=== PATIENT | male | born 1940 | race Caucasian/White ===

== ENCOUNTER 2016-12-07 23:40 | Emergency (ER) | payer OTHER ==
[2016-12-07 23:57] VITALS: TEMP 97.3; BMI 27.3
--- NOTE | 2016-12-08 00:34 | PDOC ---
History of Present Illness - General Chief Complaint: Altered Mental Status Stated Complaint: CONFUSION/ URINARY FREQUENCY Time Seen by Provider: 12/08/16 00:12 Past History - Past Medical History Allergies/Adverse Reactions: Allergies Allergy/AdvReac Type Severity Reaction Status Date / Time No Known Allergies Allergy Verified 12/07/16 23:53 Home Medications: Ambulatory Orders Hydrochlorothiazide [Hctz -] 20 mg PO DAILY 12/30/13 Simvastatin [Zocor -] 40 mg PO HS 12/30/13 Cholecalciferol (Vitamin D3) [Vitamin D3] 1,000 unit PO DAILY 12/07/14 Potassium Chloride [Klor-Con M20] 20 meq PO DAILY 12/07/14 Aspirin [ASA -] 81 mg PO DAILY #0 12/08/14 Multivit-Min/FA/Lycopen/Lutein [Centrum Silver Tablet] 1 each PO DAILY 01/30/16 Polyethylene Glycol 3350 [Miralax 119 gm Btl -] 1 cap PO BID PRN 01/30/16 Anemia: No Asthma: No Cancer: Yes (NASAL BASAL CELL CA,RECTAL CANCER) Cardiac Disorders: Yes (MVP) CVA: No COPD: No CHF: No Dementia: No Diabetes: No GI Disorders: Yes (DIVERTICULOSIS) Disorders: Yes (BPH) HTN: Yes Hypercholesterolemia: Yes Liver Disease: No Seizures: No Thyroid Disease: No - Surgical History Abdominal Surgery: Yes (COLON RESECTION 12/2014) Appendectomy: No Cardiac Surgery: No Cholecystectomy: No Lung Surgery: No Neurologic Surgery: No Orthopedic Surgery: No - Psycho/Social/Smoking Cessation Hx Anxiety: No Suicidal Ideation: No Smoking History: Never smoked Have you smoked in the past 12 months: No Number of Cigarettes Smoked Daily: 0 Information on smoking cessation initiated: No Hx Alcohol Use: No Drug/Substance Use Hx: No Substance Use Type: None Hx Substance Use Treatment: No *Physical Exam - Vital Signs Last Vital Signs Temp Pulse Resp BP Pulse Ox 97.3 F L 55 L 14 143/67 99 12/07/16 23:54 12/07/16 23:54 12/07/16 23:54 12/07/16 23:54 12/07/16 23:54
[2016-12-08 01:09] LABS: URINE APPEARANCE CLEAR; URINE BILIRUBIN NEGATIVE (NEGATIVE); URINE COLOR STRAW; URINE GLUCOSE (UA) NEGATIVE (NEGATIVE); URINE KETONE NEGATIVE (NEGATIVE); URINE LEUK ESTERASE NEGATIVE (NEGATIVE); URINE NITRITE NEGATIVE (NEGATIVE); URINE PROTEIN NEGATIVE (NEGATIVE); URINE UROBILINOGEN NEGATIVE E.U./dl (0.2-1.0)
--- NOTE | 2016-12-08 01:13 | PDOC ---
History of Present Illness - General History Source: Patient, Old Records Exam Limitations: No Limitations - History of Present Illness Initial Comments: 12/08/16 01:44 The patient is a 76 year old male, accompanied by neighbor, with a past medical history of colon cancer, who presents to the emergency department today for further evaluation of altered mental status since late yesterday. As per neighbor, the patient's spoke to him on the phone and became concerned when he was having difficulty formulating thoughts. Neighbor reports that he checked in on the patient at 10:30pm yesterday and his confusion lasted 45 minutes. The patient reports that he has experienced similar symptoms in the past and that he is scheduled for a CT tomorrow for further evaluation. The patient denies any difficulty walking or numbness The patient denies fever, chills, and sweats. The patient denies nausea, vomiting, and diarrhea. The patient denies chest pain, cough, and shortness of breath. <Gio Cummings - Last Filed: 12/08/16 01:44> <Aure Zacarias - Last Filed: 12/08/16 02:29> <Tom Baker - Last Filed: 12/08/16 05:10> - General Chief Complaint: Altered Mental Status Stated Complaint: CONFUSION/ URINARY FREQUENCY Time Seen by Provider: 12/08/16 00:12 Past History <Gio Cummings - Last Filed: 12/08/16 01:44> - Past Medical History Anemia: No Asthma: No Cancer: Yes (NASAL BASAL CELL CA,RECTAL CANCER) Cardiac Disorders: Yes (MVP) CVA: No COPD: No CHF: No Dementia: No Diabetes: No GI Disorders: Yes (DIVERTICULOSIS) Disorders: Yes (BPH) HTN: Yes Hypercholesterolemia: Yes Liver Disease: No Seizures: No Thyroid Disease: No - Surgical History Abdominal Surgery: Yes (COLON RESECTION 12/2014) Appendectomy: No Cardiac Surgery: No Cholecystectomy: No Lung Surgery: No Neurologic Surgery: No Orthopedic Surgery: No - Immunization History Immunization Up to Date: Yes - Psycho/Social/Smoking Cessation Hx Anxiety: No Suicidal Ideation: No Smoking History: Never smoked Have you smoked in the past 12 months: No Number of Cigarettes Smoked Daily: 0 Information on smoking cessation initiated: No Hx Alcohol Use: No Drug/Substance Use Hx: No Substance Use Type: None Hx Substance Use Treatment: No <RellDainshona Merlosh - Last Filed: 12/08/16 02:29> <Tom Baker - Last Filed: 12/08/16 05:10> - Past Medical History Allergies/Adverse Reactions: Allergies Allergy/AdvReac Type Severity Reaction Status Date / Time No Known Allergies Allergy Verified 12/07/16 23:53 Home Medications: Ambulatory Orders Hydrochlorothiazide [Hctz -] 20 mg PO DAILY 12/30/13 Simvastatin [Zocor -] 40 mg PO HS 12/30/13 Cholecalciferol (Vitamin D3) [Vitamin D3] 1,000 unit PO DAILY 12/07/14 Potassium Chloride [Klor-Con M20] 20 meq PO DAILY 12/07/14 Aspirin [ASA -] 81 mg PO DAILY #0 12/08/14 Multivit-Min/FA/Lycopen/Lutein [Centrum Silver Tablet] 1 each PO DAILY 01/30/16 Polyethylene Glycol 3350 [Miralax 119 gm Btl -] 1 cap PO BID PRN 01/30/16 Review of Systems - Review of Systems Able to Perform ROS?: Yes Comments:: 12/08/16 01:45 CONSTITUTIONAL: Absent: fever, no chills, no fatigue EYES: Absent: visual changes ENT: Absent: ear pain, no sore throat CARDIOVASCULAR: Absent: chest pain, no palpitations RESPIRATORY: Absent: cough, no SOB GI: Absent: abdominal pain, no nausea, no vomiting, no constipation, no diarrhea GENITOURINARY: Absent: dysuria, no frequency, no hematuria MUSCULOSKELETAL: Absent: back pain, no arthralgia, no myalgia SKIN: Absent: rash NEURO: Present: Confusion Absent: headache <Gio Cummings - Last Filed: 12/08/16 01:44> *Physical Exam - Vital Signs Last Vital Signs Temp Pulse Resp BP Pulse Ox 97.3 F L 55 L 14 143/67 99 12/07/16 23:54 12/07/16 23:54 12/07/16 23:54 12/07/16 23:54 12/07/16 23:54 - Physical Exam Comments: 12/08/16 01:45 GENERAL: Well-appearing, well-nourished. No apparent distress. HEENT: Normocephalic, atraumatic. PERRL, EOM intact. CARDIOVASCULAR: Normal S1, S2. Regular rate and rhythm. PULMONARY: Clear to auscultation bilaterally. ABDOMEN: Soft, non-distended, non-tender. EXTREMITIES: Normal ROM in all four extremities. No gross deformities. SKIN: Warm, dry. No rash NEUROLOGICAL: No focal neurological deficits. <Gio Cummings - Last Filed: 12/08/16 01:44> - Vital Signs Last Vital Signs Temp Pulse Resp BP Pulse Ox 97.3 F L 55 L 14 143/67 99 12/07/16 23:54 12/07/16 23:54 12/07/16 23:54 12/07/16 23:54 12/07/16 23:54 <Aure Zacarias - Last Filed: 12/08/16 02:29> - Vital Signs Last Vital Signs Temp Pulse Resp BP Pulse Ox 97.3 F L 55 L 14 143/67 99 12/07/16 23:54 12/07/16 23:54 12/07/16 23:54 12/07/16 23:54 12/07/16 23:54 <Tom Baker - Last Filed: 12/08/16 05:10> ED Treatment Course - ADDITIONAL ORDERS Additional order review: Laboratory Results 12/08/16 00:59 Urine Color Straw Urine Appearance Clear Urine pH 6.0 Ur Specific [place] 1.006 Urine Protein Negative Urine Glucose (UA) Negative Urine Ketones Negative Urine Blood 1+ H Urine Nitrite Negative Urine Bilirubin Negative Urine Urobilinogen Negative Ur Leukocyte Esterase Negative Urine RBC 1 Urine WBC None seen Hyaline Casts 1 <Gio Cummings - Last Filed: 12/08/16 01:44> - LABORATORY CBC & Chemistry Diagram: 12/08/16 02:08 12/08/16 02:08 <Aure Zacarias - Last Filed: 12/08/16 02:29> - LABORATORY CBC & Chemistry Diagram: 12/08/16 02:08 12/08/16 02:08 - ADDITIONAL ORDERS Additional order review: Laboratory Results 12/08/16 12/08/16 12/08/16 02:08 02:08 02:08 INR Sodium 140 Potassium 3.4 L Chloride 102 Carbon Dioxide 29 Anion Gap 9 BUN 20 H Creatinine 0.9 Creat Clearance w eGFR > 60 Random Glucose 88 Calcium 8.7 Total Bilirubin 0.5 AST 17 ALT 18 D Alkaline Phosphatase 60 Creatine Kinase 93 Troponin I < 0.02 Total Protein 7.8 Albumin 3.7 Urine Color Straw Urine Appearance Clear Urine pH 6.0 Ur Specific [place] 1.006 Urine Protein Negative Urine Glucose (UA) Negative Urine Ketones Negative Urine Blood 1+ H Urine Nitrite Negative Urine Bilirubin Negative Urine Urobilinogen Negative Ur Leukocyte Esterase Negative Urine RBC 1 Urine WBC <1 Hyaline Casts Blood Type A POSITIVE Antibody Screen Negative 12/08/16 12/08/16 02:08 00:59 INR 1.02 Sodium Potassium Chloride Carbon Dioxide Anion Gap BUN Creatinine Creat Clearance w eGFR Random Glucose Calcium Total Bilirubin AST ALT Alkaline Phosphatase Creatine Kinase Troponin I Total Protein Albumin Urine Color Straw Urine Appearance Clear Urine pH 6.0 Ur Specific [place] 1.006 Urine Protein Negative Urine Glucose (UA) Negative Urine Ketones Negative Urine Blood 1+ H Urine Nitrite Negative Urine Bilirubin Negative Urine Urobilinogen Negative Ur Leukocyte Esterase Negative Urine RBC 1 Urine WBC None seen Hyaline Casts 1 Blood Type Antibody Screen 12/08/16 02:08 RBC 4.32 MCV 92.3 MCHC 33.3 RDW 14.4 MPV 7.0 L Neutrophils % 40.9 L D Lymphocytes % 48.4 H D Monocytes % 6.3 Eosinophils % 3.1 D Basophils % 1.3 <Tom Baker - Last Filed: 12/08/16 05:10> Medical Decision Making - Medical Decision Making 12/08/16 02:23 76 yo male who has been having episodes of confusion was brought to ER by a friend. He has already seen Dr Rogelio Fung for these episodes and presents with a prescription for head CT with constrast -he has no gross focal deficits but is a very poor historian and states he doesn 't remember his age or the month -pt is alert and ambulating with ease , no extremity weakness,no ataxia,no slurred speech 12/08/16 02:29 plan- ct scan head/cbc/comp <Aure Zacarias - Last Filed: 12/08/16 02:29> *DC/Admit/Observation/Transfer - Attestations Scribe Attestion: 12/08/16 01:46 Documentation prepared by Gio Cummings, acting as medical device sales for Aure Zacarias MD. <Gio Cummings - Last Filed: 12/08/16 01:44> <Aure Zacarias - Last Filed: 12/08/16 02:29> - Discharge Dispostion Admit: No <Tom Baker - Last Filed: 12/08/16 05:10> Diagnosis at time of Disposition: Dementia - Discharge Dispostion Disposition: HOME Condition at time of disposition: Improved
[2016-12-08 01:20] LABS: URINE BLOOD 1+ (NEGATIVE)
[2016-12-08 01:22] LABS: URINE RBC 1 /hpf (0-3); URINE WBC NONE SEEN /hpf (3-5)
[2016-12-08 01:23] LABS: URINE HYALINE CAST 1 /lpf
[2016-12-08 02:19] LABS: BASOPHIL 1.3 % (0-2.0); EOSINOPHIL 3.1 % (0-4.5); MCH 30.7 pg (25.7-33.7); MCHC 33.3 g/dl (32.0-35.9); MEAN CELL VOLUME 92.3 fl (80-96); NEUTROPHILS 40.9 % (42.8-82.8); PLATELET COUNT 163 K/MM3 (134-434); RDW 14.4 % (11.9-15.9); WHITE BLOOD COUNT 11.2 K/mm3 (4.0-10.0)
--- NOTE | 2016-12-08 02:19 | PDOC ---
NIH Stroke Scale - Last Known Well Date/Time & Onset Date Last Known Well: 12/07/16 Time Last Known Well: 22:00 - Initial Evaluation Level of consciousness: Alert Ask patient the month and their age: Both incorrect Ask patient to open & close eyes; make fist and let go: Obeys both correctly Best gaze (horizontal eye movement): Normal Visual field testing: No visual field loss Facial paresis (Show teeth/raise eyebrows/close eyes tight): Normal symmetrical movement Motor Function: Left Arm: Normal Motor Function: Right Arm: Normal (extends arm 90 (or 45) degrees for 10 seconds without drift Motor Function: Left Leg: Normal (extends leg 30 degrees for 5 seconds without drift) Motor Function: Right Leg: Normal (extends leg 30 degrees for 5 seconds without drift) Limb Ataxia: No ataxia Sensory(Use pinprick test arms,legs,trunk,face/side to side): Normal Best language (Describe picture, name items, read sentences): No Aphasia Dysarthria (read several words): Normal articulation Extinction and Inattention: No abnormality - Total Score NIH Stroke Scale Score: 2
[2016-12-08 02:23] LABS: URINE APPEARANCE CLEAR; URINE BILIRUBIN NEGATIVE (NEGATIVE); URINE COLOR STRAW; URINE GLUCOSE (UA) NEGATIVE (NEGATIVE); URINE KETONE NEGATIVE (NEGATIVE); URINE LEUK ESTERASE NEGATIVE (NEGATIVE); URINE NITRITE NEGATIVE (NEGATIVE); URINE PROTEIN NEGATIVE (NEGATIVE); URINE UROBILINOGEN NEGATIVE E.U./dl (0.2-1.0)
[2016-12-08 02:28] LABS: URINE BLOOD 1+ (NEGATIVE)
[2016-12-08 02:30] LABS: URINE RBC 1 /hpf (0-3); URINE WBC <1 /hpf (3-5)
[2016-12-08 02:34] LABS: INR 1.02 (0.82-1.09); PROTHROMBIN TIME (PATIENT) 11.2 SEC (9.98-11.88)
[2016-12-08 02:49] LABS: ALBUMIN 3.7 g/dl (3.4-5.0); ANION GAP 9 (8-16); BILIRUBIN,TOTAL 0.5 mg/dL (0.2-1.0); CALCIUM 8.7 mg/dL (8.5-10.1); CO2 29 mmol/L (21-32); CREATININE 0.9 mg/dL (0.7-1.3); GLUCOSE,RANDOM 88 mg/dL (74-106); SGOT/AST 17 U/L (15-37); SGPT/ALT 18 U/L (12-78)
[2016-12-08 02:52] LABS: ALK PHOS 60 U/L (45-117); TOT PROT 7.8 g/dl (6.4-8.2); TROPONIN I < 0.02 ng/ml (0.00-0.05)
--- NOTE | 2016-12-08 05:13 | PDOC ---
*Physical Exam - Vital Signs Last Vital Signs Temp Pulse Resp BP Pulse Ox 97.3 F L 55 L 14 143/67 99 12/07/16 23:54 12/07/16 23:54 12/07/16 23:54 12/07/16 23:54 12/07/16 23:54 <Tom Baker - Last Filed: 12/08/16 05:13> - Vital Signs Last Vital Signs Temp Pulse Resp BP Pulse Ox 97.3 F L 55 L 14 143/67 99 12/07/16 23:54 12/07/16 23:54 12/07/16 23:54 12/07/16 23:54 12/07/16 23:54 <Leah Patiño - Last Filed: 12/08/16 05:15> ED Treatment Course - LABORATORY CBC & Chemistry Diagram: 12/08/16 02:08 12/08/16 02:08 - ADDITIONAL ORDERS Additional order review: Laboratory Results 12/08/16 12/08/16 12/08/16 02:08 02:08 02:08 INR Sodium 140 Potassium 3.4 L Chloride 102 Carbon Dioxide 29 Anion Gap 9 BUN 20 H Creatinine 0.9 Creat Clearance w eGFR > 60 Random Glucose 88 Calcium 8.7 Total Bilirubin 0.5 AST 17 ALT 18 D Alkaline Phosphatase 60 Creatine Kinase 93 Troponin I < 0.02 Total Protein 7.8 Albumin 3.7 Urine Color Straw Urine Appearance Clear Urine pH 6.0 Ur Specific [place] 1.006 Urine Protein Negative Urine Glucose (UA) Negative Urine Ketones Negative Urine Blood 1+ H Urine Nitrite Negative Urine Bilirubin Negative Urine Urobilinogen Negative Ur Leukocyte Esterase Negative Urine RBC 1 Urine WBC <1 Hyaline Casts Blood Type A POSITIVE Antibody Screen Negative 12/08/16 12/08/16 02:08 00:59 INR 1.02 Sodium Potassium Chloride Carbon Dioxide Anion Gap BUN Creatinine Creat Clearance w eGFR Random Glucose Calcium Total Bilirubin AST ALT Alkaline Phosphatase Creatine Kinase Troponin I Total Protein Albumin Urine Color Straw Urine Appearance Clear Urine pH 6.0 Ur Specific [place] 1.006 Urine Protein Negative Urine Glucose (UA) Negative Urine Ketones Negative Urine Blood 1+ H Urine Nitrite Negative Urine Bilirubin Negative Urine Urobilinogen Negative Ur Leukocyte Esterase Negative Urine RBC 1 Urine WBC None seen Hyaline Casts 1 Blood Type Antibody Screen 12/08/16 02:08 RBC 4.32 MCV 92.3 MCHC 33.3 RDW 14.4 MPV 7.0 L Neutrophils % 40.9 L D Lymphocytes % 48.4 H D Monocytes % 6.3 Eosinophils % 3.1 D Basophils % 1.3 <Tom Baker - Last Filed: 12/08/16 05:13> - LABORATORY CBC & Chemistry Diagram: 12/08/16 02:08 12/08/16 02:08 - ADDITIONAL ORDERS Additional order review: Laboratory Results 12/08/16 12/08/16 12/08/16 02:08 02:08 02:08 INR Sodium 140 Potassium 3.4 L Chloride 102 Carbon Dioxide 29 Anion Gap 9 BUN 20 H Creatinine 0.9 Creat Clearance w eGFR > 60 Random Glucose 88 Calcium 8.7 Total Bilirubin 0.5 AST 17 ALT 18 D Alkaline Phosphatase 60 Creatine Kinase 93 Troponin I < 0.02 Total Protein 7.8 Albumin 3.7 Urine Color Straw Urine Appearance Clear Urine pH 6.0 Ur Specific [place] 1.006 Urine Protein Negative Urine Glucose (UA) Negative Urine Ketones Negative Urine Blood 1+ H Urine Nitrite Negative Urine Bilirubin Negative Urine Urobilinogen Negative Ur Leukocyte Esterase Negative Urine RBC 1 Urine WBC <1 Hyaline Casts Blood Type A POSITIVE Antibody Screen Negative 12/08/16 12/08/16 02:08 00:59 INR 1.02 Sodium Potassium Chloride Carbon Dioxide Anion Gap BUN Creatinine Creat Clearance w eGFR Random Glucose Calcium Total Bilirubin AST ALT Alkaline Phosphatase Creatine Kinase Troponin I Total Protein Albumin Urine Color Straw Urine Appearance Clear Urine pH 6.0 Ur Specific [place] 1.006 Urine Protein Negative Urine Glucose (UA) Negative Urine Ketones Negative Urine Blood 1+ H Urine Nitrite Negative Urine Bilirubin Negative Urine Urobilinogen Negative Ur Leukocyte Esterase Negative Urine RBC 1 Urine WBC None seen Hyaline Casts 1 Blood Type Antibody Screen 12/08/16 02:08 RBC 4.32 MCV 92.3 MCHC 33.3 RDW 14.4 MPV 7.0 L Neutrophils % 40.9 L D Lymphocytes % 48.4 H D Monocytes % 6.3 Eosinophils % 3.1 D Basophils % 1.3 <Leah Patiño - Last Filed: 12/08/16 05:15> Progress Note - Progress Note Progress Note: Exam: Noncontrast CT head and contrast-enhanced CT head were read by Rashard Nolasco M.D. at 04:[address] head: Findings: Multiple axial images were obtained of the brain without contrast. There is no mass-effect, midline shift or hemorrhage. There is no intra-axial or extra-axial fluid collection. Atrophic involutional changes and chronic ischemic periventricular white matter changes are noted. The visualized portions of the paranasal sinuses are clear. The middle ear cavities and mastoids are clear. Impression: No mass effect or intracranial hemorrhage. Contrast enhanced CT head: The anterior and posterior circulation have a normal appearance. No pathologic parenchymal or extra-axial enhancement is seen. The cortical veins deep veins and venous sinuses have a normal appearance. Impression: No pathologic parenchymal or extra-axial enhancement. Normal appearance of the anterior and posterior circulation. <Leah Patiño - Last Filed: 12/08/16 05:15> *DC/Admit/Observation/Transfer <Tom Baker - Last Filed: 12/08/16 05:13> - Attestations Scribe Attestion: 12/08/16 05:15 Documentation prepared by Leah Patiño, acting as medical office technologist for Tom Baker MD, MD <Leah Patiño - Last Filed: 12/08/16 05:15> Diagnosis at time of Disposition: Dementia - Discharge Dispostion Disposition: HOME Condition at time of disposition: Improved - Referrals Referrals: Clifton Lei MD [Staff Physician] - - Patient Instructions Printed Discharge Instructions: Dementia - Post Discharge Activity
[2016-12-08 05:36] VITALS: BP 142/87; PULSE 64
--- NOTE | 2016-12-08 11:58 | EKG ---
Test Reason : Blood Pressure : / mmHG Vent. Rate : 055 BPM Atrial Rate : 055 BPM P-R Int : 168 ms QRS Dur : 098 ms QT Int : 466 ms P-R-T Axes : 077 -21 -37 degrees QTc Int : 445 ms SINUS BRADYCARDIA NONSPECIFIC ST AND T WAVE ABNORMALITY ABNORMAL ECG WHEN COMPARED WITH ECG OF 09-MAR-2015 09:23, PREMATURE VENTRICULAR COMPLEXES ARE NO LONGER PRESENT T WAVE INVERSION NO LONGER EVIDENT IN LATERAL LEADS QT HAS SHORTENED Confirmed by AG ONEIL MD ([id number]) on 12/08/2016 11:57:47 AM Referred By: Confirmed By:AG ONEIL MD
== END 2016-12-08 05:38 | disposition home or self-care (01) ==
LOC: JER 23:40
DX: F03.90 Unspecified dementia, unspecified severity, without behavioral disturbance, psychotic disturbance, mood disturbance, and anxiety (principal); I10 Essential (primary) hypertension; E78.00 Pure hypercholesterolemia, unspecified; N40.0 Benign prostatic hyperplasia without lower urinary tract symptoms; Z85.038 Personal history of other malignant neoplasm of large intestine; Z85.828 Personal history of other malignant neoplasm of skin
CPT/HCPCS: 36415; 70470-TC; 71010-TC; 80053; 81003; 81015; 82550; 84484; 85025; 85610; 86850; 86900; 86901; 93005; 93010; 99282-25

== ENCOUNTER 2017-05-06 07:09 | Day surgery (SDC) | payer OTHER ==
[2017-05-05 12:05] VITALS: BMI 23.1
[2017-05-06] MEDS ORDERED: PROPOFOL 20 ML ONE ×4 (07:47→07:48)
[2017-05-06] MEDS ORDERED: SUCCINYLCHOLINE CHLORIDE 200 MG/10 ML VIAL ONE (07:47)
[2017-05-06] MEDS ORDERED: LIDOCAINE HCL/PF 2% SDV 5ML VIAL ONE (07:47)
[2017-05-06] MEDS ORDERED: ePHEDrine SULFATE 50 MG/1 ML AMPULE ONE (07:47)
[2017-05-06] MEDS ORDERED: PHENYLEPHRINE HCL 10 MG/1 ML SINGLE DOSE VIAL ONE (07:48)
[2017-05-06 08:44] VITALS: TEMP 97.9
[2017-05-06 09:27] VITALS: BP 106/57; PULSE 60
--- NOTE | 2017-05-07 11:52 | PATH ---
Surgical Pathology Report Patient Name: KELLEY SOSA [facility]. Rec. #: [id number] /Age/Gender: 1940 (Age: 76) / M Account: [id number] Location: U-ENDOSCOPY Taken: 05/06/2017 Received: 05/06/2017 Reported: 05/07/2017 Physicians: Sweta Schmidt M.D. Specimen(s) Received A: POLYP TRANSVERSE DISTAL COLON B: BX RECTAL ANASTOMSIS Clinical History History of rectal cancer Colon polyp, diverticulosis, patent rectal sigmoid anastomosis Final Diagnosis A. COLON, DISTAL TRANSVERSE, BIOPSY: COLONIC MUCOSA WITH HYPERPLASIA OF MUCOSA ASSOCIATED LYMPHOID TISSUE. NO ACTIVE INFLAMMATION, ADENOMATOUS CHANGE, OR CARCINOMA IDENTIFIED. B. COLON, RECTAL ANASTOMOSIS, BIOPSY: COLONIC MUCOSA WITH NO PATHOLOGIC CHANGES. Electronically Signed Jose Juan M.D. Gross Description A. Received in formalin, labeled "polyp transverse distal" are 2 dasilva, irregular portions of soft tissue measuring 0.2 and 0.5 cm. in greatest dimension. The specimens are submitted in toto in one cassette. B. Received in formalin, labeled "biopsy rectal anastomosis" are 5 dasilva, irregular portions of soft tissue ranging from 0.1-0.4 cm. in greatest dimension. The specimens are submitted in toto in one cassette. /05/06/201705/06/2017
== END 2017-05-06 09:37 | disposition home or self-care (01) ==
LOC: JASU-ENDO 07:09
PROVIDERS: ATTEND Internal Medicine Gastroenterology
PROC: 0DBP8ZX Excision of Rectum, Via Natural or Artificial Opening Endoscopic, Diagnostic (ICD-10-PCS; 2017-05-06)
PROC: 0DBL8ZX Excision of Transverse Colon, Via Natural or Artificial Opening Endoscopic, Diagnostic (ICD-10-PCS; principal; 2017-05-06 08:00)
DX: Z12.11 Encounter for screening for malignant neoplasm of colon (principal); Z85.048 Personal history of other malignant neoplasm of rectum, rectosigmoid junction, and anus; D12.3 Benign neoplasm of transverse colon; K57.30 Diverticulosis of large intestine without perforation or abscess without bleeding; K64.8 Other hemorrhoids; Z98.0 Intestinal bypass and anastomosis status
CPT/HCPCS: 88305-TC

== ENCOUNTER 2017-08-22 14:47 | Inpatient (IN) | payer OTHER ==
--- NOTE | 2017-08-22 15:40 | PDOC ---
History of Present Illness - General Stated Complaint: FALL Time Seen by Provider: 08/22/17 15:06 History Source: Patient, Family Exam Limitations: No Limitations, Dementia - History of Present Illness Initial Comments: 08/22/17 15:22 The patient is a 77M with a PMH of Alzheimer's demetia who came via EMS after sustaining a fall. The patient was with his son when he had a witnessed mechanical fall. The patient states that he took a misstep and fell and hit his head. He is on baby asa. He denies LOC but does not remember the entire event. He denies any CP, SOB, lightheadedness, palpitations, dizziness, numbness, tingling, or weakness anywhere. Past History - Past Medical History Allergies/Adverse Reactions: Allergies Allergy/AdvReac Type Severity Reaction Status Date / Time No Known Allergies Allergy Verified 08/22/17 15:10 Home Medications: Ambulatory Orders Simvastatin [Zocor -] 40 mg PO HS 12/30/13 Potassium Chloride [Klor-Con M20] 20 meq PO DAILY 12/07/14 Aspirin [ASA -] 81 mg PO DAILY #0 12/08/14 Multivit-Min/FA/Lycopen/Lutein [Centrum Silver Tablet] 1 each PO DAILY 01/30/16 Polyethylene Glycol 3350 [Miralax 119 gm Btl -] 1 cap PO PRN PRN 01/30/16 Cholecalciferol (Vitamin D3) [Vitamin D3] 10,000 unit PO DAILY 05/05/17 Citalopram Hydrobromide [Celexa -] 10 mg PO DAILY 05/05/17 Metoprolol Succinate [Toprol XL -] 25 mg PO DAILY 05/05/17 Donepezil HCl 5 mg PO DAILY 08/22/17 Anemia: No Asthma: No Cancer: Yes (NASAL BASAL CELL, RECTAL CANCER) Cardiac Disorders: Yes (MVP) CVA: No COPD: No CHF: No Dementia: (MILD OMS) Diabetes: No GI Disorders: Yes (DIVERTICULOSIS) Disorders: Yes (BPH) HTN: Yes Hypercholesterolemia: Yes Liver Disease: No Seizures: No Thyroid Disease: No - Surgical History Abdominal Surgery: Yes (COLON RESECTION 12/2014) Appendectomy: No Cardiac Surgery: No Cholecystectomy: No Lung Surgery: No Neurologic Surgery: No Orthopedic Surgery: No - Immunization History Immunization Up to Date: Yes - Suicide/Smoking/Psychosocial Hx Smoking History: Never smoked Have you smoked in the past 12 months: No Number of Cigarettes Smoked Daily: 0 Hx Alcohol Use: No Drug/Substance Use Hx: No Substance Use Type: None Hx Substance Use Treatment: No *Physical Exam - Vital Signs Last Vital Signs Temp Pulse Resp BP Pulse Ox 98.2 F 62 20 137/75 100 08/22/17 15:00 08/22/17 15:00 08/22/17 15:00 08/22/17 15:00 08/22/17 15:00 - Physical Exam Comments: 08/22/17 17:59 GENERAL: Well developed, well nourished. Awake and alert. No acute distress. HEENT: Normocephalic, atraumatic. PERRLA, EOMI. Sclera are non-icteric. Moist mucous membranes. Oropharynx is clear. NECK: Supple. Full ROM. No JVD. Carotid pulses 2+ and symmetric, without bruits. No thyromegaly. No lymphadenopathy. CARDIOVASCULAR: Regular rate and rhythm. No murmurs, rubs, or gallops. Distal pulses are 2+ and symmetric. PULMONARY: No evidence of respiratory distress. Lungs clear to auscultation bilaterally. No wheezing, rales or rhonchi. ABDOMINAL: Soft. Non-tender. Non-distended. No rebound or guarding. No organomegaly. Normoactive bowel sounds. GENITOURINARY: No CVA tenderness bilaterally. MUSCULOSKELETAL: Normal range of motion at all joints. No bony deformities or tenderness. EXTREMITIES: No cyanosis. No clubbing. No edema. No calf tenderness. SKIN: Warm and dry. Normal capillary refill. No rashes. No jaundice. NEUROLOGICAL: Alert, awake, appropriate. Cranial nerves 2-12 intact. No deficits to light touch and temperature in face, upper extremities and lower extremities. No motor deficits in the in face, upper extremities and lower extremities. Normal speech. Gait is normal without ataxia. PSYCHIATRIC: Cooperative. Good eye contact. Appropriate mood and affect. Procedures - Laceration/Wound Repair Right Lateral Face Wound Length: to 2.5 cm Wound Explored: clean Wound's Depth, Shape: superficial Irrigated w/ Saline: Yes Betadine Prep: No Anesthesia: 1% Lidocaine Amount of Anesthetic (ccs): 2 Wound Debrided: minimal Wound Repaired With: Sutures Suture Size/Type: 5:0 Number of Sutures: 5 Layer Closure: No Sterile Dressing Applied: Yes Splint Applied: No Sling Applied: No Heart Score/ECG Review - Risk Factors Based on the list above the patient has:: No risk factors known - ECG Impressions Comment:: 08/22/17 18:56 NSR Rate 64 QTc 453 ED Treatment Course - LABORATORY CBC & Chemistry Diagram: 08/22/17 15:45 08/22/17 15:45 - RADIOLOGY Radiology Studies Ordered: Category Date Time Status HEAD CT WITHOUT CONTRAST [CT] Stat CT Scan 08/22/17 15:06 Ordered Medical Decision Making - Medical Decision Making 08/22/17 18:08 The patient is a 77M with a PMH of dementia who presents after a mechanical fall. The patient had a 2cm laceration which I sutured with [address] of his head show coup and contrecoup small areas of hemorrhage. Neurosurg recommends monitoring platelets and coags, then having a repeat CT tonight. Paged PCP. 08/22/17 18:26 Dr. Arambula accepts admission to a [facility] bed and wants repeat CT at 2200. He also wants a consult to Dr. Brar. [place] and coags WNL. *DC/Admit/Observation/Transfer Diagnosis at time of Disposition: Intracranial bleed - Discharge Dispostion Condition at time of disposition: Guarded Admit: Yes
[2017-08-22 15:56] LABS: BASOPHIL 1.3 % (0-2.0); EOSINOPHIL 3.2 % (0-4.5); MCH 31.2 pg (25.7-33.7); MCHC 33.5 g/dl (32.0-35.9); MEAN PLT VOLUME 6.7 fl (7.5-11.1); NEUTROPHILS 43.4 % (42.8-82.8); PLATELET COUNT 169 K/MM3 (134-434); RDW 14.3 % (11.9-15.9); WHITE BLOOD COUNT 8.4 K/mm3 (4.0-10.0)
[2017-08-22 16:10] LABS: INR 0.98 (0.82-1.09); PROTHROMBIN TIME (PATIENT) 11.1 SEC (9.98-11.88)
--- NOTE | 2017-08-22 16:16 | PDOC ---
Attending Attestation - Resident Resident Name: Keith Rachel - ED Attending Attestation I have performed the following: I have examined & evaluated the patient, The case was reviewed & discussed with the resident, I agree w/resident's findings & plan, Exceptions are as noted - HPI HPI: 08/22/17 16:10 77 M with h/o alzheimer's dementia presents to ER after witnessed fall. Per son , pt was ambulating outside when he tripped while going up a step, landing forward onto his head. He denies LOC. Denies neck pain. Denies JOHNSON/N/V. Was able to get up on his own afterwards. Denies pain in his arms or legs. Pt denies having any CP/SOB/palpitations prior to the fall. Denies lightheadedness or dizziness. He has no complaints currently other than pain at the site of his head injury. - Physicial Exam PE: 08/22/17 16:16 "GENERAL: Awake, alert, and fully oriented, in no acute distress HEAD: 2cm R forehead lac EYES: PERRLA, EOMI, sclera anicteric, conjunctiva clear ENT: Auricles normal inspection, hearing grossly normal, nares patent, oropharynx clear without exudates. Moist mucosa NECK: Nontender, no stepoffs, Normal ROM, supple, no lymphadenopathy, JVD, or masses LUNGS: Breath sounds equal, clear to auscultation bilaterally. No wheezes, and no crackles HEART: Regular rate and rhythm, normal S1 and S2, no murmurs, rubs or gallops ABDOMEN: Soft, nontender, normoactive bowel sounds. No guarding, no rebound. No masses BACK: Nontender, no stepoffs EXTREMITIES: Normal range of motion, no edema. No clubbing or cyanosis. No cords, erythema, or tenderness NEUROLOGICAL: Cranial nerves II through XII intact. 5/5 strength and sensation in all extremities, Normal speech, normal gait SKIN: Warm, Dry, normal turgor, no rashes or lesions noted. " - Medical Decision Making 08/22/17 16:17 77 M with head injury s/p mechanical fall. Neuro exam is completely normal. - CT head without contrast - Tdap - Lac repair 08/22/17 22:[address] head shows occipital contusion, likely representing coup-contrecoup injury. Nsgy consulted, recommends admission for monitoring and repeat imaging. Pt admitted to obs. Case discussed in detail with admitting physician including history, physical exam and ancillary studies. Admitting physician has assumed care for the patient and will follow all pending diagnostics and complete the evaluation and treatment.
[2017-08-22] MEDS ORDERED: DIPHTH,PERTUSS(ACELL),TET 0.5 ML DISP.SYRIN IM ONE (16:19)
[2017-08-22 16:26] LABS: ALBUMIN 3.8 g/dl (3.4-5.0); ANION GAP 6 (8-16); BILIRUBIN,TOTAL 0.3 mg/dL (0.2-1.0); CALCIUM 8.4 mg/dL (8.5-10.1); CO2 29 mmol/L (21-32); CREATININE 1.1 mg/dL (0.7-1.3); GLUCOSE,RANDOM 99 mg/dL (74-106); SGOT/AST 19 U/L (15-37); SGPT/ALT 29 U/L (12-78)
[2017-08-22 16:29] LABS: ALK PHOS 72 U/L (45-117); CPK 84 IU/L (39-308); TROPONIN I < 0.02 ng/ml (0.00-0.05)
[2017-08-22] MEDS ORDERED: SODIUM CHLORIDE 1,000 ML IV SCH (19:00)
[2017-08-22] MEDS ORDERED: ATORVASTATIN CA 20 MG TABLET (FP) PO SCH (22:00)
[2017-08-22 22:42] VITALS: BMI 23.5
[2017-08-23 00:56] LABS: URINE APPEARANCE CLEAR; URINE BILIRUBIN NEGATIVE (NEGATIVE); URINE BLOOD NEGATIVE (NEGATIVE); URINE COLOR LTYELLOW; URINE GLUCOSE (UA) NEGATIVE (NEGATIVE); URINE KETONE NEGATIVE (NEGATIVE); URINE NITRITE NEGATIVE (NEGATIVE); URINE PROTEIN NEGATIVE (NEGATIVE); URINE UROBILINOGEN NEGATIVE mg/dL (0.2-1.0)
[2017-08-23 07:54] LABS: MCH 31.4 pg (25.7-33.7); MEAN CELL VOLUME 92.4 fl (80-96); MEAN PLT VOLUME 7.3 fl (7.5-11.1); PLATELET COUNT 163 K/MM3 (134-434); WHITE BLOOD COUNT 7.8 K/mm3 (4.0-10.0)
[2017-08-23 08:07] LABS: INR 1.05 (0.82-1.09); PROTHROMBIN TIME (PATIENT) 11.9 SEC (9.98-11.88)
[2017-08-23 08:29] LABS: ALBUMIN 3.6 g/dl (3.4-5.0); ANION GAP 8 (8-16); CALCIUM 8.4 mg/dL (8.5-10.1); CO2 29 mmol/L (21-32); GLUCOSE,RANDOM 93 mg/dL (74-106)
[2017-08-23 08:33] LABS: ALK PHOS 72 U/L (45-117); BILIRUBIN,TOTAL 0.7 mg/dL (0.2-1.0); CREATININE 0.9 mg/dL (0.7-1.3); SGOT/AST 16 U/L (15-37); SGPT/ALT 26 U/L (12-78); TOT PROT 7.6 g/dl (6.4-8.2)
--- NOTE | 2017-08-23 09:05 | EKG ---
Test Reason : Blood Pressure : / mmHG Vent. Rate : 064 BPM Atrial Rate : 064 BPM P-R Int : 174 ms QRS Dur : 096 ms QT Int : 440 ms P-R-T Axes : 047 -27 040 degrees QTc Int : 453 ms NORMAL SINUS RHYTHM NONSPECIFIC T WAVE ABNORMALITY ABNORMAL ECG WHEN COMPARED WITH ECG OF 08-DEC-2016 02:04, NO SIGNIFICANT CHANGE WAS FOUND Confirmed by BHARATHI JONES MD ([id number]) on 08/23/2017 9:05:20 AM Referred By: Confirmed By:BHARATHI JONES MD
[2017-08-23] MEDS ORDERED: CITALOPRAM HYDROBROMIDE 10 MG TABLET (FP) PO SCH (10:00)
[2017-08-23] MEDS ORDERED: POTASSIUM CHLORIDE TABS 20 MEQ TABLET.ER (FP) PO SCH (10:00)
[2017-08-23] MEDS ORDERED: FLU VACCINE QUAD 60 MCG/0.5 ML (MDV 17-18) IM ONE (10:00)
[2017-08-23] MEDS ORDERED: METOPROLOL TARTRATE 25 MG TABLET (FP) PO SCH (10:00)
[2017-08-23] MEDS ORDERED: CHOLECALCIFEROL (VITAMIN D3) 1,000 UNIT TABLET (FP) PO SCH (10:00)
[2017-08-23] MEDS ORDERED: DONEPEZIL HCL 5 MG TABLET (FP) PO SCH (10:00)
[2017-08-23 10:43] VITALS: BP 138/65; PULSE 61; TEMP 98.7
--- NOTE | 2017-08-23 11:15 | CON.NEURO ---
Consult - History of Present Illness History of Present Illness: 77 M with h/o alzheimer's dementia presents to ER after witnessed fall. as per chart, pt was ambulating outside when he tripped while going up a step, landing forward onto his head. He denies LOC. Denies neck pain. Denies JOHNSON/N/V. Was able to get up on his own afterwards. Denies pain in his arms or legs. Pt denies having any CP/SOB/palpitations prior to the fall. Denies lightheadedness or dizziness. as per today conversation, states he was walking with his "dad' -- then realizes it was his son when questioned. no HX of seizures. denies weakness, numbness, JOHNSON. CT HD Impression: Interval focal left parietal cortical acute/subacute contusion without gross evidence of extra- axial hemorrhage. MRI BRAIN : 12/12 no subdural, acute stroke, white matter changes and atrophy - Alcohol/Substance Use Hx Alcohol Use: No - Smoking History Smoking history: Never smoked Have you smoked in the past 12 months: No Aproximately how many cigarettes per day: 0 Home Medications - Allergies Allergies/Adverse Reactions: Allergies Allergy/AdvReac Type Severity Reaction Status Date / Time Fish Containing Products Allergy Mild Verified 08/23/17 04:32 blackened blue fish Allergy Mild Uncoded 08/22/17 20:54 - Home Medications Home Medications: Ambulatory Orders Simvastatin [Zocor -] 40 mg PO HS 12/30/13 Potassium Chloride [Klor-Con M20] 20 meq PO DAILY 12/07/14 Aspirin [ASA -] 81 mg PO DAILY #0 12/08/14 Multivit-Min/FA/Lycopen/Lutein [Centrum Silver Tablet] 1 each PO DAILY 01/30/16 Polyethylene Glycol 3350 [Miralax 119 gm Btl -] 1 cap PO PRN PRN 01/30/16 Cholecalciferol (Vitamin D3) [Vitamin D3] 10,000 unit PO DAILY 05/05/17 Citalopram Hydrobromide [Celexa -] 10 mg PO DAILY 05/05/17 Metoprolol Succinate [Toprol XL -] 25 mg PO DAILY 05/05/17 Donepezil HCl 5 mg PO DAILY 08/22/17 Physical Exam-Neuro Vital Signs: Vital Signs Temperature 98.7 F 08/23/17 10:00 Pulse Rate 61 08/23/17 10:00 Respiratory Rate 18 08/23/17 10:00 Blood Pressure 138/65 08/23/17 10:00 O2 Sat by Pulse Oximetry (%) 94 L 08/23/17 09:00 Labs: CBC, BMP 08/23/17 06:45 08/23/17 06:45 INR, PTT INR 1.05 (0.82-1.09) 08/23/17 06:45 Assessment/Plan 77 M with h/o alzheimer's dementia presents to ER after witnessed fall. as per chart, pt was ambulating outside when he tripped while going up a step, landing forward onto his head. He denies LOC. Denies neck pain. Denies JOHNSON/N/V. Was able to get up on his own afterwards. Denies pain in his arms or legs. + Left parietal occipital contusion (counter coup injury) --no evidence of subdural bleed. baseline dementia. spoke to son neurologically stable-can be Dc from neuro stand point. Dr Persaud
--- NOTE | 2017-08-23 13:49 | HP ---
Admitting History and Physical - Primary Care Physician PCP: Jesus Arambula - Admission Chief Complaint: Fall. Head trauma History of Present Illness: Pt was walking wityh his son, stepped on the dirt, got off balance and fell hitting his head. In ER has noticed to have left frontal skin laceration ( sutured), cortical and subcortical contusion of left parietal lobe. Dr. Maxwell Tee was called from ER, case was reviewed, History Source: Patient, Family Member (son) - Past Medical History [employer]: Yes: Dementia Cardiovascular: Yes: CAD, Hyperlipdemia Gastrointestinal: Yes: Diverticulosis Heme/Onc: Yes: Other (Rectal CA) - Past Surgical History Additional Past Surgical History: colon resection - Smoking History Smoking history: Never smoked Have you smoked in the past 12 months: No Aproximately how many cigarettes per day: 0 - Alcohol/Substance Use Hx Alcohol Use: No Home Medications - Allergies Allergies/Adverse Reactions: Allergies Allergy/AdvReac Type Severity Reaction Status Date / Time Fish Containing Products Allergy Mild Verified 08/23/17 04:32 blackened blue fish Allergy Mild Uncoded 08/22/17 20:54 - Home Medications Home Medications: Ambulatory Orders Simvastatin [Zocor -] 40 mg PO HS 12/30/13 Potassium Chloride [Klor-Con M20] 20 meq PO DAILY 12/07/14 Aspirin [ASA -] 81 mg PO DAILY #0 12/08/14 Multivit-Min/FA/Lycopen/Lutein [Centrum Silver Tablet] 1 each PO DAILY 01/30/16 Polyethylene Glycol 3350 [Miralax 119 gm Btl -] 1 cap PO PRN PRN 01/30/16 Cholecalciferol (Vitamin D3) [Vitamin D3] 10,000 unit PO DAILY 05/05/17 Citalopram Hydrobromide [Celexa -] 10 mg PO DAILY 05/05/17 Metoprolol Succinate [Toprol XL -] 25 mg PO DAILY 05/05/17 Donepezil HCl 5 mg PO DAILY 08/22/17 Review of Systems - Review of Systems Constitutional: denies: Chills, Fever Eyes: denies: Blurred Vision, Double Vision HENT: denies: Ear Discharge, Ear Pain, Epistaxis, Nasal Congestion, Throat Pain Cardiovascular: denies: Chest Pain, Edema, Palpitations Respiratory: denies: Cough, SOB Gastrointestinal: denies: Abdominal Pain, Diarrhea, Nausea, Vomiting Genitourinary: denies: Burning, Discharge, Dysuria, Flank Pain Musculoskeletal: denies: Back Pain, Muscle Pain Integumentary: reports: Bruising. denies: Eczema, Rash Neurological: denies: Change in LOC, Change in Speech, Numbness, Unsteady Gait Endocrine: denies: Excessive Sweating, Intolerance to Cold Hematology/Lymphatic: denies: Easily Bruised, Excessive Bleeding Psychiatric: denies: Anxiety, Depression Physical Examination Vital Signs: Vital Signs Temperature 98.7 F 08/23/17 10:00 Pulse Rate 61 08/23/17 10:00 Respiratory Rate 18 08/23/17 10:00 Blood Pressure 138/65 08/23/17 10:00 O2 Sat by Pulse Oximetry (%) 94 L 08/23/17 09:00 Constitutional: Yes: No Distress, Calm Eyes: Yes: Conjunctiva Clear, EOM Intact, PERRL HENT: Yes: Normocephalic. No: Nasal Congestion, Pharyngeal Erythema, Rhinnorhea , Thrush Neck: Yes: Trachea Midline. No: Lymphadenopathy Cardiovascular: Yes: Regular Rate and Rhythm, S1, S2 Respiratory: Yes: Regular, CTA Bilaterally. No: Rales Gastrointestinal: Yes: Normal Bowel Sounds, Soft. No: Tenderness Renal/: No: CVA Tenderness - Left, CVA Tenderness - Right Musculoskeletal: No: Back Pain, Joint Swelling Edema: No Wound/Incision: Yes: Other (Left frontal, above eyebrown, with stiches, clean not tender with palpation, no discharge) Neurological: Yes: Alert, Oriented Psychiatric: Yes: Alert, Oriented Labs: CBC, BMP 08/23/17 06:45 08/23/17 06:45 Imaging - Results Cat Scan: Report Reviewed (for both) Problem List - Problems (1) Intracranial bleed Code(s): I62.9 - NONTRAUMATIC INTRACRANIAL HEMORRHAGE, UNSPECIFIED (2) Dementia Code(s): F03.90 - UNSPECIFIED DEMENTIA WITHOUT BEHAVIORAL DISTURBANCE (3) Fall Code(s): W19.XXXA - UNSPECIFIED FALL, INITIAL ENCOUNTER Assessment/Plan ER consulted NeuroSX PPt had repeated Head CY scan- stable Neuro Consult- cleared pt for DC Pt seems at baseline
[2017-08-23 14:50] LABS: URINE LEUK ESTERASE Negative (NEGATIVE)
--- NOTE | 2017-08-23 15:39 | DS ---
Physical Examination Vital Signs: Vital Signs Temperature 98.7 F 08/23/17 10:00 Pulse Rate 61 08/23/17 10:00 Respiratory Rate 18 08/23/17 10:00 Blood Pressure 138/65 08/23/17 10:00 O2 Sat by Pulse Oximetry (%) 94 L 08/23/17 09:00 Findings/Remarks: see H&P Labs: CBC, BMP 08/23/17 06:45 08/23/17 06:45 Discharge Summary Reason For Visit: INTRACRANIAL HEMORRHAGE Current Active Problems Fall (Acute) Intracranial bleed (Acute) Procedures: Principal: Head CT Scan X2 Hospital Course: Pt came to ER after mechanical fall and Head trauma; in ER Neuro SX (Dr. Maxwell Dey) was consulted; Head CT scan ( X 2) was c/w stable cortical and subcortical contusion/bleed of left parietal lobe. Pt was seen by Neurology Dr. Persaud), cleared for DC. Condition: Stable - Instructions Diet, Activity, Other Instructions: Resume home diet ASA on hold until case would be reviewed with Dr. Dey. To return to ER for stiches removal Referrals: Jesus Arambula MD [Staff Physician] - (within one week) Yevgeniy Persaud DO [Staff Physician] - (this week) Disposition: HOME - Home Medications Comprehensive Discharge Medication List: Ambulatory Orders this list might NOT be accurate Simvastatin [Zocor -] 40 mg PO HS 12/30/13 Potassium Chloride [Klor-Con M20] 20 meq PO DAILY 12/07/14 Aspirin [ASA -] 81 mg PO DAILY #0 12/08/14 Multivit-Min/FA/Lycopen/Lutein [Centrum Silver Tablet] 1 each PO DAILY 01/30/16 Polyethylene Glycol 3350 [Miralax 119 gm Btl -] 1 cap PO PRN PRN 01/30/16 Cholecalciferol (Vitamin D3) [Vitamin D3] 10,000 unit PO DAILY 05/05/17 Citalopram Hydrobromide [Celexa -] 10 mg PO DAILY 05/05/17 Metoprolol Succinate [Toprol XL -] 25 mg PO DAILY 05/05/17 Donepezil HCl 5 mg PO DAILY 08/22/17
[2017-08-23] MEDS ORDERED: POLYETHYLENE GLYCOL 3350 119 GM BTL PO PRN (15:47)
--- NOTE | 2017-08-23 16:33 | PN ---
Progress Note (short form) - Note Progress Note: Pt's condition, Head CT scan, medications were reviewed with Dr. Dey. TO ariane HIDALGO for one week. I d/w pt and pt's son about in, all questions were answered. Case was d/w pt's nurse. Time spent for managing pt's care: over 90 minutes. Problem List - Problems (1) Intracranial bleed Code(s): I62.9 - NONTRAUMATIC INTRACRANIAL HEMORRHAGE, UNSPECIFIED (2) Dementia Code(s): F03.90 - UNSPECIFIED DEMENTIA WITHOUT BEHAVIORAL DISTURBANCE (3) Fall Code(s): W19.XXXA - UNSPECIFIED FALL, INITIAL ENCOUNTER
[2017-08-24] MEDS ORDERED: METOPROLOL SUCCINATE 25 MG TAB.SR.24H (FP) PO SCH (10:00)
[2017-08-24] MEDS ORDERED: MULTIVITAMINS (DAILY MVI) TABLET (FP) PO SCH (10:00)
== END 2017-08-23 17:00 | disposition home or self-care (01) | DRG 87 ==
LOC: JER 14:47 → JERBED 18:28 → J4S 20:30
PROVIDERS: ADMIT Specialist; ATTEND Specialist
PROC: 0HQ1XZZ Repair Face Skin, External Approach (ICD-10-PCS; principal; 2017-08-22)
DX: S06.360A Traumatic hemorrhage of cerebrum, unspecified, without loss of consciousness, initial encounter (principal); S06.330A Contusion and laceration of cerebrum, unspecified, without loss of consciousness, initial encounter; S01.81XA Laceration without foreign body of other part of head, initial encounter; G30.8 Other Alzheimer's disease; F02.80 Dementia in other diseases classified elsewhere, unspecified severity, without behavioral disturbance, psychotic disturbance, mood disturbance, and anxiety; I25.10 Atherosclerotic heart disease of native coronary artery without angina pectoris; K57.90 Diverticulosis of intestine, part unspecified, without perforation or abscess without bleeding; N40.0 Benign prostatic hyperplasia without lower urinary tract symptoms; I34.1 Nonrheumatic mitral (valve) prolapse; E78.5 Hyperlipidemia, unspecified; Z85.048 Personal history of other malignant neoplasm of rectum, rectosigmoid junction, and anus; W01.0XXA Fall on same level from slipping, tripping and stumbling without subsequent striking against object, initial encounter; Y93.89 Activity, other specified; Y92.098 Other place in other non-institutional residence as the place of occurrence of the external cause
CPT/HCPCS: 36415; 70450-TC; 80053; 81003; 82550; 84484; 85025; 85027; 85610; 90688; 90715; 93005; 93010; 99285-25; G0008